=== PATIENT | female | born 1960 | race Two or more races ===

== ENCOUNTER 2022-08-21 11:24 | Outpatient (CLI) | payer OTHER | END 2022-08-21 11:28 | disposition home or self-care (01) | LOC: SONOGRAMA 11:24 | PROVIDERS: ATTEND Pathology Anatomic Pathology & Clinical Pathology | DX: D34 Benign neoplasm of thyroid gland (principal); E04.9 Nontoxic goiter, unspecified; E04.2 Nontoxic multinodular goiter ==